=== PATIENT | female | born 1975 | race Caucasian/White ===

== ENCOUNTER 2023-06-01 11:42 | Emergency (ER) | payer MEDICAID, OTHER ==
[~2023-06-01] VITALS: Ht 167.6 cm; Wt 102.1 kg
[2023-06-01] MEDS: HYDROcodone-ACET 10/325MG TAB PO ONE (14:55)
[2023-06-01] MEDS: KETOROLAC TROMETH 60MG/2ML VIAL IM ONE (14:56)
[2023-06-01] MEDS ORDERED: IBUP-1455 PO (15:00)
[2023-06-01] MEDS ORDERED: HYDR-4902 PO (15:00)
[2023-06-01 15:11] VITALS: BP 149/86; PULSE 76; RESP 18; TEMP 96.8; O2SAT 99
== END 2023-06-01 15:37 | disposition home or self-care (01) ==
LOC: ER 11:42
DX: G89.29 Other chronic pain (principal); M54.42 Lumbago with sciatica, left side; M54.41 Lumbago with sciatica, right side; Z79.1 Long term (current) use of non-steroidal anti-inflammatories (NSAID); Z79.899 Other long term (current) drug therapy
CPT/HCPCS: 96372; 99283; J1885